=== PATIENT | female | born 1960 | race Caucasian/White ===

== ENCOUNTER 2018-02-21 16:14 | Emergency (ER) | payer MEDICAID, OTHER ==
[2018-02-21] MEDS: HYDROCORTISONE LEFT EYE (18:56)
[2018-02-21] MEDS: NEOMYCIN LEFT EYE (18:56)
[2018-02-21] MEDS: POLYMYXIN B LEFT EYE (18:56)
[2018-02-21] MEDS: BACITRACIN LEFT EYE (18:56)
== END 2018-02-21 19:15 | disposition home or self-care (01) ==
LOC: FTE 16:14
DX: S05.92XA Unspecified injury of left eye and orbit, initial encounter (principal); E11.9 Type 2 diabetes mellitus without complications; X58.XXXA Exposure to other specified factors, initial encounter; Y92.9 Unspecified place or not applicable
CPT/HCPCS: 99283; Z7610

== ENCOUNTER 2018-02-25 11:31 | Emergency (ER) | payer MEDICAID ==
[2018-02-25] MEDS: ACETAMINOPHEN 325 MG TAB PO (13:00)
== END 2018-02-25 13:01 | disposition home or self-care (01) ==
LOC: FTE 11:31
DX: S05.92XA Unspecified injury of left eye and orbit, initial encounter (principal); R07.89 Other chest pain; I10 Essential (primary) hypertension; E11.9 Type 2 diabetes mellitus without complications; X58.XXXA Exposure to other specified factors, initial encounter; Y92.9 Unspecified place or not applicable
CPT/HCPCS: 93005; 99283-25

== ENCOUNTER 2018-10-02 16:48 | Emergency (ER) | payer MEDICAID ==
[2018-10-02 18:26] LABS: ADD MAN DIFF? NO
[2018-10-02 18:45] LABS: ALANINE AMINOTRANSFERASE 25 IU/L (13-69); ALBUMIN 4.7 g/dl (3.3-4.9); ALBUMIN/GLOBULIN RATIO 1.34; ALKALINE PHOSPHATASE 163 IU/L (42-121); ANION GAP 12 (5-13); ASPARTATE AMINO TRANSFERASE 31 IU/L (15-46); BILIRUBIN,INDIRECT 0.2 mg/dl (0-1.1); BILIRUBIN,TOTAL 0.2 mg/dl (0.2-1.3); BLOOD UREA NITROGEN 17 mg/dl (7-20); CALCIUM 10.3 mg/dl (8.4-10.2); CARBON DIOXIDE 24 mmol/L (21-31); CHLORIDE 102 mmol/L (97-110); CREATININE 0.48 mg/dl (0.44-1.00); Estimated GFR > 60 mL/min (>60); GLUCOSE 242 mg/dl (70-220); POTASSIUM 4.3 mmol/L (3.5-5.1); SODIUM 138 mmol/L (135-144); TOTAL PROTEIN 8.2 g/dl (6.1-8.1)
[2018-10-02 19:15] LABS: BASOPHIL # 0.1 10^3/ul (0.0-0.1); BASOPHILS % 0.6 % (0.0-2.0); EOSINOPHILS # 0.1 10^3/ul (0.0-0.5); EOSINOPHILS % 1.5 % (0.0-7.0); HEMATOCRIT 41.3 % (37.0-47.0); HEMOGLOBIN 13.9 g/dl (12.0-16.0); LYMPHOCYTES # 2.6 10^3/ul (0.8-2.9); LYMPHOCYTES % 31.4 % (15.0-51.0); MEAN CORPUSCULAR HEMOGLOBIN 31.3 pg (29.0-33.0); MEAN CORPUSCULAR HGB CONC 33.7 g/dl (32.0-37.0); MEAN PLATELET VOLUME 10.9 fl (7.4-10.4); MONOCYTE # 0.7 10^3/ul (0.3-0.9); MONOCYTES % 7.7 % (0.0-11.0); NEUTROPHIL # 4.9 10^3/ul (1.6-7.5); NEUTROPHILS % 58.4 % (39.0-77.0); PLATELET COUNT 291 10^3/UL (140-415); RED BLOOD COUNT 4.44 10^6/ul (4.20-5.40); RED CELL DISTRIBUTION WIDTH 12.3 % (11.5-14.5)
[2018-10-02 19:15] LABS: WHITE BLOOD COUNT 8.4 10^3/ul (4.8-10.8)
== END 2018-10-02 21:02 | disposition left against medical advice (07) ==
LOC: FTE 21:02
DX: R06.02 Shortness of breath (principal); I10 Essential (primary) hypertension; E11.9 Type 2 diabetes mellitus without complications
CPT/HCPCS: 71046; 80053; 85025; 93005; 99285-25

== ENCOUNTER 2019-02-10 10:39 | Emergency (ER) | payer MEDICAID ==
[2019-02-10 11:09] LABS: URINE BLOOD (Dip) POC 2+ (NEGATIVE); URINE KETONES (Dip) POC Negative (NEGATIVE); URINE LEUKOCYTE EST (Dip) POC Negative (NEGATIVE); URINE NITRITE (Dip) POC Negative (NEGATIVE); URINE TOTAL PROTEIN POC Negative (NEGATIVE)
[2019-02-10 11:09] LABS: URINE PH (Dip) POC 5.5 (5.0-8.5)
== END 2019-02-10 11:47 | disposition home or self-care (01) ==
LOC: FTE 10:39
DX: N81.10 Cystocele, unspecified (principal); E11.9 Type 2 diabetes mellitus without complications; I10 Essential (primary) hypertension; B37.9 Candidiasis, unspecified; Z79.4 Long term (current) use of insulin
CPT/HCPCS: 81003; 99284